=== PATIENT | female | born 1960 | race Caucasian/White ===

== ENCOUNTER 2017-05-12 05:16 | Day surgery (SDC) | payer MEDICAID ==
[2017-05-11 16:14] LABS: HEMATOCRIT 40.7 % (36.0-48.0); HEMOGLOBIN 13.6 g/dL (12-16); MCH 31.9 pg (26.0-34.0); MCHC 33.4 g/dL (31.0-37.0); MCV 95.3 fL (80.0-100.0); MEAN PLATELET VOLUME 9.3 fL (7.4-10.4); RBC 4.27 10x6/uL (4.00-5.40); RDW 13.2 % (11.5-14.5); WBC 8.3 10x3/uL (4.8-10.8)
[~2017-05-12] VITALS: Ht 160 cm; Wt 54.4 kg
--- NOTE | ~2017-05-12 | OP ---
PATIENT NAME: DUGLAS HADLEY MEDICAL RECORD: [id number] :58 LOCATION:[facility] ADMISSION DATE: SURGEON: ARNOLDO SMITH DPM DATE OF OPERATION: 05/12/2017 PREOPERATIVE DIAGNOSIS: Arthritis, left hallux IPJ. POSTOPERATIVE DIAGNOSIS: Arthritis, left hallux IPJ. PROCEDURE: IPJ fusion, left hallux. ANESTHESIA: Local with IV sedation utilizing lidocaine and Marcaine plain, approximately 7 cc total around the left hallux. HEMOSTASIS: Left thigh tourniquet at 350 mmHg. PREOPERATIVE DETAILS: The patient was taken to the OR, placed on the operating table in a supine position. This was followed by induction of anesthesia and the infiltration of local anesthetic. The left extremity was then prepped and draped in usual aseptic technique followed by exsanguination and inflation of tourniquet. A 15 blade was used to create a transverse incision over the IPJ of the left hallux. The incision was deepened down to the extensor longus tendon, which was transected in transverse fashion. The IPJ was then delivered. A sagittal saw was used to resect the head of the proximal phalanx and the base of the distal phalanx. Guidewire was then placed across the fusion site from distal to proximal into the subchondral bone of the proximal phalanx of the hallux. C-arm was used to verify good placement. Overdrill was then performed followed by insertion of a 40 mm 3.5 screw noting excellent internal purchase of the screw as well as alignment of the IPJ as well as alignment of the fusion site. C-arm was used to verify this, the wound was flushed. The distal wound was closed with 4-0 Rapide in a simple interrupted technique. The extensor longus tendon was repaired with 4-0 Rapide. The subcutaneous tissue was reapproximated with 4-0 Rapide and the skin was closed with 4-0 Rapide in a subcuticular technique followed by Dermabond, Adaptic, 4 x 4 and Conform were used to dress the wounds followed by Coban. Tourniquet was deflated. POSTOPERATIVE DETAILS: The patient tolerated the procedure well and left the OR with vital signs stable and vascular status at preop levels. The patient was transferred to recovery per anesthesia in stable condition. TRANSINT:[id number] Voice Confirmation ID: [id number] DOCUMENT ID: [id number] ARNOLDO SMITH DPM CC: [id number] DICTATION DATE: 05/12/17 1006 CHEMIST ASSISTANT: 05/12/17 1110 [facility] [address] [place] [address]
[~2017-05-12 05:16] MED LIST: CYCLOBENZAPRINE10 MG PO; ELAVIL25 MG PO; LYRICA300 MG PO; ZESTORETIC 10/11 TAB PO
[2017-05-12 08:17] VITALS: BP 120/79; Ht 160 cm; Wt 54.4 kg
== END 2017-05-12 12:04 | disposition home or self-care (01) ==
LOC: D.OPS 05:16 → D.PAN 09:00 → D.OPS 09:20
PROVIDERS: Anesthesiology
DX: M19.072 Primary osteoarthritis, left ankle and foot (principal); I10 Essential (primary) hypertension; Z01.812 Encounter for preprocedural laboratory examination

== ENCOUNTER 2019-05-04 13:07 | Emergency (ER) | payer MEDICAID ==
[~2019-05-04] VITALS: Ht 160 cm; Wt 54.5 kg
[2019-05-04 13:12] VITALS: Ht 160 cm; Wt 54.5 kg
[2019-05-04] MEDS ORDERED: HYDROCODON-ACE1 EAC7 PO (13:14)
[2019-05-04 13:29] LABS: BASOPHILS 0.4 % (0-2); EOSINOPHILS 1.6 % (0-7); HEMATOCRIT 39.7 % (36.0-48.0); HEMOGLOBIN 13.6 g/dL (12-16); IMMATURE GRANULOCYTES 0.1 % (0-5); LYMPHOCYTES 28.7 % (15-50); MCH 31.4 pg (26.0-34.0); MCHC 34.3 g/dL (31.0-37.0); MCV 91.7 fL (80.0-100.0); MEAN PLATELET VOLUME 8.8 fL (7.4-10.4); MONOCYTES 10.2 % (2-11); PLATELET COUNT 257 10x3/uL (130-400); RBC 4.33 10x6/uL (4.00-5.40); RDW 13.6 % (11.5-14.5); WBC 7.4 10x3/uL (4.8-10.8)
[2019-05-04 13:42] LABS: APTT 24.6 SECONDS (22.8-39.4); INR 0.93 (0.85-1.17)
[2019-05-04 13:48] LABS: ALBUMIN 3.5 g/dL (3.4-5.0); ALKALINE PHOSPHATASE 79 U/L (46-116); ALT (SGPT) 27 U/L (10-68); BILIRUBIN - TOTAL 0.34 mg/dL (0.2-1.3); CALC OSMOLALITY 280 mosm/kg (275-300); CARBON DIOXIDE 27.4 mmol/L (21.0-32.0); CHLORIDE - SERUM 104 mmol/L (98-107); GLUCOSE 89 mg/dL (74-106); PROTEIN - SERUM 7.2 g/dL (6.4-8.2); SODIUM 141 mmol/L (136-145); UREA NITROGEN 16 mg/dL (7-18); eGFR NON AFRICAN AMERICAN 60 mL/min (90-120)
[2019-05-04 14:04] LABS: CKMB 1.5 U/L (0.0-3.6); CREATINE KINASE 145 UL (21-215); MAGNESIUM - SERUM 1.9 mg/dL (1.8-2.4); TROPONIN-I < 0.017 ng/mL (0.000-0.060)
[2019-05-04 15:54] VITALS: BP 159/93
== END 2019-05-04 15:54 | disposition home or self-care (01) ==
LOC: D.ER 13:07
PROVIDERS: Family Medicine
DX: R07.89 Other chest pain (principal); F41.9 Anxiety disorder, unspecified; I34.1 Nonrheumatic mitral (valve) prolapse